=== PATIENT | male | born 1955 | race Caucasian/White ===

== ENCOUNTER 2022-08-11 08:15 | Emergency (ER) | payer MEDICARE ==
[~2022-08-11] VITALS: Wt 86.6 kg
[2022-08-11 09:17] LABS: BASO # 0.1 10*3/uL (0.0-0.1); BASO % 1.2 % (0.0-1.0); EOS # 0.4 10*3/uL (0.0-0.4); EOS % 4.1 % (1.0-4.0); LYMPH % 21.8 % (27.0-41.0); MEAN CELL VOLUME 87.2 fl (80.0-94.0); MEAN CORPUSCULAR HGB 29.9 pg (27.0-31.0); MEAN CORPUSCULAR HGB CONC 34.3 g/dl (33.0-37.0); MONO # 0.8 10*3/uL (0.1-1.0); MONO % 8.5 % (3.0-9.0); NEUT # 5.7 10*3/uL (2.3-7.9); NEUT % 63.7 % (47.0-73.0); PLATELET COUNT AUTOMATED 292 10*3/uL (130-400); RED BLOOD COUNT 5.85 10*6/uL (4.50-5.90)
[2022-08-11 09:28] LABS: ACT PARTIAL THROMBO TIME 29.1 SECONDS (20.0-32.1)
[2022-08-11 09:35] LABS: ALKALINE PHOSPHATASE 92 U/L (45-117); BUN 11 mg/dl (7-24); CHLORIDE 108 mmol/L (98-107); CREATININE 0.94 mg/dL (0.70-1.30); POTASSIUM 4.5 mmol/L (3.5-5.1); SGOT/AST 14 IU/L (3-35); SGPT/ALT 26 U/L (12-78); SODIUM 140 mmol/L (136-145); TOTAL PROTEIN 7.4 gm/dL (6.4-8.2)
[2022-08-11] MEDS ORDERED: PREDNISONE50 MG PO (11:00)
[2022-08-11] MEDS ORDERED: CYCLOBENZAPRINE10 MG PO (11:00)
== END 2022-08-11 11:37 | disposition home or self-care (01) ==
LOC: ED 08:15
PROVIDERS: Emergency Medicine
DX: S39.012A Strain of muscle, fascia and tendon of lower back, initial encounter (principal); Z88.8 Allergy status to other drugs, medicaments and biological substances; X58.XXXA Exposure to other specified factors, initial encounter; Y93.89 Activity, other specified; Y92.89 Other specified places as the place of occurrence of the external cause; Y99.8 Other external cause status

== ENCOUNTER 2022-09-01 07:35 | Emergency (ER) | payer MEDICARE ==
[~2022-09-01] VITALS: Ht 180.3 cm; Wt 86.2 kg
[~2022-09-01 07:35] MED LIST: CYCLOBENZAPRINE10 MG PO; PREDNISONE50 MG PO
[2022-09-01 09:15] LABS: HEMATOCRIT 54.5 % (42.0-52.0); MEAN CELL VOLUME 89.8 fl (80.0-94.0); MEAN CORPUSCULAR HGB 29.8 pg (27.0-31.0); MEAN CORPUSCULAR HGB CONC 33.2 g/dl (33.0-37.0); MEAN PLATELET VOLUME 8.9 fl (9.6-12.3); PLATELET COUNT AUTOMATED 283 10*3/uL (130-400); RED BLOOD COUNT 6.07 10*6/uL (4.50-5.90); RED CELL DISTRI WIDTH 13.4 % (0-14.5); WHITE BLOOD COUNT 17.6 10*3/uL (4.8-10.8)
[2022-09-01 09:21] LABS: MANUAL DIFF REFLEX YES
[2022-09-01] MEDS ORDERED: PERCOCET 10-321 EACH PO (09:28)
[2022-09-01 09:35] LABS: BILIRUBIN Negative (Negative); BLOOD Negative (Negative); CLARITY Clear (Clear); COLOR Yellow (Yellow); GLUCOSE Negative (Negative); KETONE Negative (Negative); LEUKO ESTERASE Negative (Negative); NITRITE Negative (Negative)
[2022-09-01 09:41] LABS: BUN 12 mg/dl (7-24); CHLORIDE 102 mmol/L (98-107); CREATININE 1.07 mg/dL (0.70-1.30); POTASSIUM 4.6 mmol/L (3.5-5.1); SODIUM 135 mmol/L (136-145)
[2022-09-01 09:49] LABS: ATYPICAL LYMPHS 4 % (0-0); TOTAL CELLS COUNTED 100 #CELLS
[2022-09-01 09:50] LABS: BURR CELLS FEW; PLATELET SUFFICIENCY NORMAL (NORMAL); POLYCHROMASIA SLIGHT; TOXIC GRANULATION SLIGHT; VACUOLATION OF NEUTROPHILS SLIGHT
[2022-09-01] MEDS ORDERED: MEDROL DOSEPAK4 MG PO (13:33)
[2022-09-01] MEDS ORDERED: NEURONTIN300 MG PO (13:33)
== END 2022-09-01 16:40 | disposition home or self-care (01) ==
LOC: ED 07:35
PROVIDERS: Emergency Medicine
DX: M54.16 Radiculopathy, lumbar region (principal); D75.1 Secondary polycythemia; I73.9 Peripheral vascular disease, unspecified; F17.210 Nicotine dependence, cigarettes, uncomplicated; Z88.5 Allergy status to narcotic agent; Z79.899 Other long term (current) drug therapy

== ENCOUNTER 2022-09-17 10:51 | Emergency (ER) | payer MEDICARE ==
[~2022-09-17] VITALS: Wt 82.6 kg
[~2022-09-17 10:51] MED LIST changes: +MEDROL DOSEPAK4 MG PO; +NEURONTIN300 MG PO; +PERCOCET 10-321 EACH PO
[2022-09-17 12:47] LABS: BASO # 0.1 10*3/uL (0.0-0.1); BASO % 0.8 % (0.0-1.0); EOS # 0.2 10*3/uL (0.0-0.4); EOS % 2.4 % (1.0-4.0); HEMATOCRIT 48.8 % (42.0-52.0); LYMPH # 1.9 10*3/uL (1.3-4.4); LYMPH % 19.4 % (27.0-41.0); MEAN CELL VOLUME 87.9 fl (80.0-94.0); MEAN CORPUSCULAR HGB 29.5 pg (27.0-31.0); MEAN CORPUSCULAR HGB CONC 33.6 g/dl (33.0-37.0); MONO # 0.7 10*3/uL (0.1-1.0); MONO % 7.6 % (3.0-9.0); NEUT # 6.6 10*3/uL (2.3-7.9); NEUT % 68.7 % (47.0-73.0); PLATELET COUNT AUTOMATED 323 10*3/uL (130-400); RED BLOOD COUNT 5.55 10*6/uL (4.50-5.90); WHITE BLOOD COUNT 9.6 10*3/uL (4.8-10.8)
[2022-09-17 13:11] LABS: CHLORIDE 103 mmol/L (98-107); SODIUM 136 mmol/L (136-145)
[2022-09-17 13:19] LABS: CREATININE 0.88 mg/dL (0.70-1.30)
[2022-09-17 13:20] LABS: ALKALINE PHOSPHATASE 79 U/L (46-116); BUN 12 mg/dl (9-23); LIPASE 31 U/L (12-53)
[2022-09-17 13:21] LABS: SGPT/ALT 25 U/L (10-49)
[2022-09-17 13:22] LABS: TOTAL PROTEIN 7.2 gm/dL (6.0-8.0)
[2022-09-17 14:42] LABS: BILIRUBIN Negative (Negative); CLARITY Clear (Clear); COLOR Yellow (Yellow); GLUCOSE Negative (Negative); KETONE 1+ (Negative); LEUKO ESTERASE Negative (Negative); NITRITE Negative (Negative); PH 7.5 (4.5-8.0); SPECIFIC GRAVITY 1.015 (1.001-1.030)
[2022-09-17 14:55] LABS: BLOOD Trace-Lysed (Negative)
[2022-09-17] MEDS ORDERED: ONDANSETRON4 MG SL (15:09)
[2022-09-17 15:53] LABS: WBC 0-2 wbc/hpf (0-5)
== END 2022-09-17 16:27 | disposition home or self-care (01) ==
LOC: ED 10:51
PROVIDERS: Physician Assistant
DX: A08.4 Viral intestinal infection, unspecified (principal); Z20.822 Contact with and (suspected) exposure to COVID-19; E86.0 Dehydration; Z88.8 Allergy status to other drugs, medicaments and biological substances

== ENCOUNTER 2023-03-13 06:46 | Emergency (ER) | payer MEDICARE ==
[~2023-03-13] VITALS: Ht 182.8 cm; Wt 86.6 kg
[~2023-03-13 06:46] MED LIST changes: +ONDANSETRON4 MG SL
[2023-03-13 07:51] LABS: BASO # 0.1 10*3/uL (0.0-0.1); BASO % 0.9 % (0.0-1.0); EOS # 0.3 10*3/uL (0.0-0.4); EOS % 2.3 % (1.0-4.0); HEMATOCRIT 48.1 % (42.0-52.0); LYMPH # 1.3 10*3/uL (1.3-4.4); LYMPH % 10.9 % (27.0-41.0); MEAN CELL VOLUME 85.6 fl (80.0-94.0); MEAN CORPUSCULAR HGB 29.2 pg (27.0-31.0); MEAN CORPUSCULAR HGB CONC 34.1 g/dl (33.0-37.0); MONO # 1.3 10*3/uL (0.1-1.0); MONO % 10.7 % (3.0-9.0); NEUT # 9.2 10*3/uL (2.3-7.9); NEUT % 74.6 % (47.0-73.0); PLATELET COUNT AUTOMATED 296 10*3/uL (130-400); RED BLOOD COUNT 5.62 10*6/uL (4.50-5.90); RED CELL DISTRI WIDTH 12.8 % (0-14.5); WHITE BLOOD COUNT 12.3 10*3/uL (4.8-10.8)
[2023-03-13 08:27] LABS: ALKALINE PHOSPHATASE 88 U/L (46-116); BUN 16 mg/dl (9-23); CHLORIDE 106 mmol/L (98-107); POTASSIUM 4.1 mmol/L (3.4-5.1); SGPT/ALT 13 U/L (10-49); TOTAL PROTEIN 6.9 gm/dL (6.0-8.0)
[2023-03-13] MEDS ORDERED: HYDROCODONE-AC1 EAC1 PO (09:17)
[2023-03-13] MEDS ORDERED: METRONIDAZOLE500 M1 PO (09:17)
[2023-03-13] MEDS ORDERED: CIPRO500 MG PO (09:17)
== END 2023-03-13 09:19 | disposition home or self-care (01) ==
LOC: ED 06:46
PROVIDERS: Emergency Medicine
DX: K57.32 Diverticulitis of large intestine without perforation or abscess without bleeding (principal); Z87.442 Personal history of urinary calculi; Z88.5 Allergy status to narcotic agent; Z98.890 Other specified postprocedural states

== ENCOUNTER → 2024-07-29 | Outpatient (CLI) | payer MEDICARE ==
[~2024-07-29] MED LIST changes: +CIPRO500 MG PO; +HYDROCODONE-AC1 EAC1 PO; +METRONIDAZOLE500 M1 PO
[2024-07-29 09:46] LABS: BASO # 0.1 10*3/uL (0.0-0.1); EOS # 0.5 10*3/uL (0.0-0.4); EOS % 4.4 % (1.0-4.0); HEMATOCRIT 53.2 % (42.0-52.0); LYMPH # 2.4 10*3/uL (1.3-4.4); LYMPH % 20.2 % (27.0-41.0); MEAN CORPUSCULAR HGB 29.1 pg (27.0-31.0); MEAN CORPUSCULAR HGB CONC 32.3 g/dl (33.0-37.0); MONO # 0.7 10*3/uL (0.1-1.0); MONO % 6.1 % (3.0-9.0); PLATELET COUNT AUTOMATED 313 10*3/uL (130-400); RED BLOOD COUNT 5.91 10*6/uL (4.50-5.90)
[2024-07-29 09:58] LABS: BILIRUBIN Negative (Negative); BLOOD Trace-Lysed (Negative); CLARITY Clear (Clear); COLOR Yellow (Yellow); GLUCOSE Negative (Negative); KETONE Negative (Negative); LEUKO ESTERASE Negative (Negative); NITRITE Negative (Negative); PH 5.5 (4.5-8.0)
[2024-07-29 10:25] LABS: ALKALINE PHOSPHATASE 100 U/L (46-116); BUN 8 mg/dl (9-23); CHLORIDE 106 mmol/L (98-107); CHOLESTEROL 201 mg/dL (<200); LDL CHOLESTEROL 120 mg/dL (9-159); POTASSIUM 4.5 mmol/L (3.4-5.1); SGPT/ALT 17 U/L (5-49); TOTAL PROTEIN 7.4 gm/dL (6.0-8.0); TRIGLYCERIDES 94 mg/dl (<150); URIC ACID 4.9 mg/dL (3.7-9.2)
[2024-07-29 11:14] LABS: EPITHELIAL CELLS 0-2
== END | disposition home or self-care (01) ==
LOC: LAB 09:22
PROVIDERS: ATTEND Nurse Practitioner Family
DX: Z13.220 Encounter for screening for lipoid disorders (principal); Z13.29 Encounter for screening for other suspected endocrine disorder; Z13.1 Encounter for screening for diabetes mellitus; Z12.5 Encounter for screening for malignant neoplasm of prostate; J44.1 Chronic obstructive pulmonary disease with (acute) exacerbation; N20.0 Calculus of kidney; Z79.899 Other long term (current) drug therapy

== ENCOUNTER → 2024-08-12 | Outpatient (CLI) | payer MEDICARE | END | disposition home or self-care (01) | LOC: CT 00:31 | PROVIDERS: ATTEND Nurse Practitioner Family | DX: Z12.2 Encounter for screening for malignant neoplasm of respiratory organs (principal); F17.210 Nicotine dependence, cigarettes, uncomplicated; J44.1 Chronic obstructive pulmonary disease with (acute) exacerbation; I25.10 Atherosclerotic heart disease of native coronary artery without angina pectoris; J43.9 Emphysema, unspecified; R91.8 Other nonspecific abnormal finding of lung field; Z90.49 Acquired absence of other specified parts of digestive tract ==